=== PATIENT | male | born 1950 | race Caucasian/White ===

== ENCOUNTER → 2021-05-17 | Outpatient (CLI) | payer MEDICARE, OTHER ==
[2021-05-17] VITALS (13 sets, daily range): BP systolic 135–188; BP diastolic 74–93
[~2021-05-17] VITALS: Ht 175.3 cm; Wt 104.8 kg
[~2021-05-17] MED LIST: ACIDOPHILUS LA1 EAC1 PO; ASPIRIN EC81 M1 PO; CARVEDILOL3.125 MG PO; Carvedilol PO; LIPITOR40 MG PO; LISINOPRIL20 MG PO; MELATONIN10 M3 PO; METFORMIN HCL500 MG PO; NITROSTAT0.4 M1 SUBLING; PLAVIX 75 MG TA75 MG PO; PRINIVIL40 MG PO; SUPER THERAVIT1 EACH PO; VITAMIN B-121000 MC2 PO; Vitamin D3 PO
[2021-05-17 08:53] LABS: HEMATOCRIT 42.8 % (42.0-52.0); HEMOGLOBIN 14.7 gm/dL (14.0-18.0); MCH 31.1 pg (26.0-34.0); MCHC 34.3 g/dL (28.0-37.0); MCV 90.6 fL (80.0-100.0); RBC 4.72 mil/uL (4.50-6.00); WBC 8.7 thou/uL (4.0-11.0)
[2021-05-17 09:03] LABS: ANION GAP 12 mmol/L (7-16); BUN 19 mg/dL (7-18); CALCIUM 9.3 mg/dL (8.5-10.1); CHLORIDE 98 mmol/L (98-107); CO2 25 mmol/L (21-32); CREATININE 0.9 mg/dL (0.6-1.3); GLUCOSE 330 mg/dL (70-99); POTASSIUM 4.2 mmol/L (3.5-5.1); SODIUM 135 mmol/L (136-145)
[2021-05-17 09:06] LABS: APTT 25.5 Seconds (25.0-31.3); PROTIME 10.3 Seconds (9.20-11.50)
[2021-05-17 09:07] LABS: ALBUMIN 3.6 g/dL (3.4-5.0); ALKALINE PHOSPHATASE 103 U/L (46-116); CHOLESTEROL 185 mg/dL (<200); HDL CHOLESTEROL 50 mg/dL (>40); LDL CHOLESTEROL 103 mg/dL (<100); SGOT 19 U/L (15-37); SGPT 42 U/L (30-65); TC:HDL 3.7 Ratio (Not establshd); TOTAL BILIRUBIN 0.5 mg/dL (<0.1-1.0); TOTAL PROTEIN 6.9 g/dL (6.4-8.2); TRIGLYCERIDE 160 mg/dL (<150); VLDL 32 mg/dL (<40)
[2021-05-17 09:12] LABS: SERUM ASSESSMENT Clear
--- NOTE | 2021-05-17 12:25 | H ---
[place] [address] HISTORY AND PHYSICAL Name: RAMANDEEP WRIGHT Room: [facility].#: [id number] Admission: 05/17/21 Attend Phys: Armen Abraham MD, F Discharge: Date of : 54 Report #: [id number] THIS REPORT FOR: cc: Tyree Joy Robin L. FNP Blick, David R. MD [facility] ~ DOC #: [id number] cc: Rufino Abraham MD [facility] DATE OF SERVICE: 05/17/2021 STAT HISTORY AND PHYSICAL HISTORY OF PRESENT ILLNESS: The patient is a 70-year-old single white male who was brought to the outpatient department to undergo cardiac catheterization. The patient has no previous history of heart disease. Recently, he was noted to have an abnormal ECG. He denies a history of chest tightness, shortness of breath, palpitations, edema or syncope. I saw him in the office on 04/13 and recommended a Cardiolite stress test because of his risk factors and abnormal ECG. He denied any chest pain on the stress test. Myocardial perfusion imaging, however, saw a moderate size reversible inferolateral defect with an ejection fraction of 72%. Because of his risk factors and abnormal nuclear stress test, recommended cardiac catheterization. PAST MEDICAL HISTORY: Significant only for tonsillectomy. He does have history of diabetes, hypertension, and hyperlipidemia. MEDICATIONS: Include aspirin, Lipitor, lisinopril, metformin. He recently was started on carvedilol. ALLERGIES: He has no known drug allergies. FAMILY HISTORY: His father had hypertension. SOCIAL HISTORY: He is single, lives in [place]. He is a retired spring floor service worker. He has no history of smoking or alcohol abuse. REVIEW OF SYSTEMS: No history of stroke, asthma, liver disease, kidney disease, bleeding, cancer, or psychiatric illness. PHYSICAL EXAMINATION: GENERAL: Revealed a middle-aged male, appeared in no distress. VITAL SIGNS: Blood pressure was 170/90, pulse is 90. HEENT: He was anicteric. Conjunctivae pink. Mucosa moist. NECK: Veins not distended. No carotid bruits[place] [address] HISTORY AND PHYSICAL Name: RAMANDEEP WRIGHT Room: [facility]#: [id number] Admission: 05/17/21 Attend Phys: Armen Abraham MD, F Discharge: Date of : 54 Report #: [id number] CHEST: Clear to auscultation. CARDIAC: Regular rate and rhythm. ABDOMEN: Soft. EXTREMITIES: Had no edema. Posterior tibial pulses 2+ bilaterally. SKIN: Cool and dry. NEUROLOGIC: Nonfocal. LABORATORY DATA: His ECG showed sinus rhythm. There were septal Q-waves. Lab work in January include cholesterol 127, triglycerides 149, HDL 40, LDL 64. IMPRESSION AND RECOMMENDATIONS: 1. Coronary artery disease. Abnormal nuclear stress test. Recommend cardiac catheterization. 2. Diabetes. The patient is on oral medications. 3. Hypertension. The patient is on angiotensin-converting enzyme inhibitor and beta-tim. 4. Hyperlipidemia. The patient is on a statin drug. Armen Abraham MD [facility] FRANCISCO J/HEIKE/BRANDI <ELECTRONICALLY SIGNED> By: Armen Abraham MD, [facility] 05/17/21 1225 [id number] [id number] Abraham MD, [facility] /nt
--- NOTE | 2021-05-17 12:46 | CARD ---
[address] [address] CARDIAC CATH REPORT Name: RAMANDEEP WRIGHT Room: [facility].#: [id number] Admission: 05/17/21 Attend Phys: Armen Abraham MD, F Discharge: Date of : 54 Report #: [id number] THIS REPORT FOR: cc: Tyree Joy Robin L. FNP Blick, David R. MD [facility] ~ APPROVED REPORT Study performed: 05/17/2021 08:57:34 Patient Details Patient Status: Out-Patient Room #: The patient is a 70 year-old male Event Personnel Armen Abraham Dog Walker, Jordy Rodrigues RN Artillery Officer, Ramandeep Chapman Lawhorn, Becki RTRodrigo Monitor Procedures Performed Art Access - R radial artery , Left Heart Cath w/or w/o Coronaries LHC , [place] Place w/wo Plasty Single OM , Hemostasis with Radial Vasc band Indication Positive stress test Risk Factors Hypercholesterolemia, Hypertension, Diabetes Admission/Lab Medications/Medications given during procedure Glycoprotein IllbIlla Inhibitors, Heparin Unfract., Nitroglycerin IA 200 mcg, Verapamil IA 2.5 mg, Heparin IV 5000 units, Heparin IV 2000 units, Aggrastat IV bolus 10.5 ml, Heparin IV 2000 units, Plavix PO 600 mg, Aspirin PO 81 mg, Nitroglycerin IA 200 mcg, Verapamil IA 2.5 mg Procedure Narrative The patient was brought electively to the Cardiac Catheterization Laboratory and was prepped and draped in a sterile manner. The right wrist was infiltrated with 2% Lidocaine subcutaneous anesthesia. IV conscious sedation was used throughout procedure with appropriate monitoring and was performed in the [place] [address] CARDIAC CATH REPORT Name: RAMANDEEP WRIGHT Room: [facility]#: [id number] Admission: 05/17/21 Attend Phys: Armen Abraham MD, F Discharge: Date of : 54 Report #: [id number] who was an independent trained observer other than the physician performing the procedure. A 6F Slender Troy sheath was inserted into the right radial artery. Coronary angiography was performed using coronary diagnostic catheters. The right coronary system was accessed and visualized with a 6F JR4 catheter. The left coronary system was accessed and visualized with a 6F JL4 catheter. The left ventricle was accessed and visualized with a 6F Pigtail catheter. Left ventricular/Aortic Valve gradient assessed via catheter pullback. Left ventriculogram was performed in MONTES projection. Closure device was deployed with a 6 Fr Vasc-Band Lng 27cm. The patient tolerated the procedure well and there were no complications associated with the procedure. There was no hematoma. Intraoperative Conscious Sedation Sedation start time: 10:05 Case end Time: 10:46 Versed 2 mg Fluoro Time: 7.3 minutes Dose: DAP [id number] cGycm2 1796 mGy Contrast Type and Amount: Omnipaque 145 ml Coronary Angiography The patient's coronary anatomy is co- dominant. Diagnostic Cath Left Main 0% stenosis LAD 40% mid stenosis Circumflex 0% stenosis OM1 large vessel with 30% proximal stenosis OM3 medium sized vessel with 90% proximal stenosis Right Coronary 30% proximal and 60% distal stenosis Left Ventriculography The left ventricular ejection fraction is estimated to be 60-65%. Left ventricular wall motion abnormalities are not present. There is no mitral insufficiency. Hemodynamics The aortic pressure is 144/76 mmHg with a mean of 107 mmHg. The left ventricular pressure is 144/10 mmHg with a mean of mmHg. The left ventricular end diastolic pressure is 16 mmHg. There was no gradient across the aortic valve upon pullback. Pullback from the left ventricle to the aorta revealed no gradient [place] [address] CARDIAC CATH REPORT Name: RAMANDEEP WRIGHT Room: [facility]#: [id number] Admission: 05/17/21 Attend Phys: Armen Abraham MD, F Discharge: Date of : 54 Report #: [id number] PCI Technique Lesion Anticoagulation was achieved with Heparin. Aggrastat IV bolus 10.5 ml given. Percutaneous coronary intervention was performed on the third obtuse marginal branch segment. The lesion stenosis prior to intervention was 90% with CARMINE 3 flow. A 6F XB 4.0 Guide Catheter was used to engage the left main ostium. A BMW 190cm Interventional Guidewire was used to cross the lesion. STENT DEPLOYMENT A drug-eluting stent Timmy RX Stent 2.0X12mm was inserted and inflated up to 10.00atm for 11seconds. Repeat angiography revealed the following post-stent deployment results: 0% stenosis. Additional Inflation: 12.00atm for 8seconds. Additional Inflation: 16.00atm for 7seconds. Additional Inflation: 18 claudia for 12 seconds. Final angiography reveals 0 % stenosis with CARMINE 3 flow. Conclusion 1. 40% mid LAD stenosis and 60% distal RCA stenosis 2. 90% stenosis of the proximal portion of a medium sized 3rd marginal branch of the circumflex 3. LVEF 60-65% 4. successful placement of a drug eluting stent in the 3rd marginal artery. Recommendations Aggressive Medical Therapy Medications Administered Clopidogrel <ELECTRONICALLY SIGNED> By: Armen Abraham MD, [facility] 05/17/21 1246 1246 [id number] Abraham MD, FAC /INF
[2021-05-17 13:40] LABS: CALCIUM 7.7 mg/dL (8.5-10.1); CREATININE 0.8 mg/dL (0.6-1.3); POTASSIUM 3.8 mmol/L (3.5-5.1)
--- NOTE | 2021-05-17 13:55 | EKG ---
[place] [address] ELECTROCARDIOGRAM REPORT Name: RAMANDEEP WRIGHT Room: [facility]#: [id number] Admission: 05/17/21 Attend Phys: Armen Abraham MD Discharge: Date of : 54 Date of Service: 05/17/21 1347 Report #: [id number] THIS REPORT FOR: //name// [facility] Test Date: 2021-05-17 Test Time: 13:47:59 Pat Name: RAMANDEEP WRIGHT Department: Room: Gender: Lead Data Architect: [facility] : 1950 Requested By: Armen Abraham Order Number: [id number] Cuauhtemoc MD: Armen Abraham Measurements Intervals [place] Rate: 94 P: 27 NV: 187 QRS: -52 QRSD: 81 T: 48 QT: 345 QTc: 432 Interpretive Statements Sinus rhythm Inferior infarct, old Anterior infarct, old No previous ECG available for comparison Electronically Signed On 05-17-2021 13:55:28 CDT by Armen Abraham [email or web address] <ELECTRONICALLY SIGNED> By: Armen Abraham MD, [facility] 05/17/21 1355 1347 1347 Armen Abraham MD, [facility] /EPI
== END | disposition home or self-care (01) ==
LOC: M.CL 07:46
PROVIDERS: ATTEND Internal Medicine Cardiovascular Disease
DX: R94.39 Abnormal result of other cardiovascular function study (principal); I25.10 Atherosclerotic heart disease of native coronary artery without angina pectoris; I10 Essential (primary) hypertension; E78.00 Pure hypercholesterolemia, unspecified; E11.9 Type 2 diabetes mellitus without complications; Z98.890 Other specified postprocedural states; Z79.899 Other long term (current) drug therapy; Z82.49 Family history of ischemic heart disease and other diseases of the circulatory system